=== PATIENT | female | born 1965 | race Caucasian/White ===

== ENCOUNTER 2017-10-28 17:40 | Emergency (ER) | payer BC ==
[2017-10-28] MEDS ORDERED: ACETAMINOPHEN-CODEINE 300/30MG TAB ONE (19:00)
== END 2017-10-28 19:08 | disposition home or self-care (01) ==
LOC: EDH 17:40
DX: S82.62XA Displaced fracture of lateral malleolus of left fibula, initial encounter for closed fracture (principal); Z88.8 Allergy status to other drugs, medicaments and biological substances; W01.0XXA Fall on same level from slipping, tripping and stumbling without subsequent striking against object, initial encounter; Y93.89 Activity, other specified; Y92.89 Other specified places as the place of occurrence of the external cause; Y99.8 Other external cause status
CPT/HCPCS: 73610